=== PATIENT | male | born 1935 | race Caucasian/White ===

== ENCOUNTER 2021-07-19 23:17 | Inpatient (IN) | payer BC, MEDICARE ==
[~2021-07-19] VITALS: Ht 182.9 cm; Wt 78.0 kg
[2021-07-19] MEDS ORDERED: IV NORMAL SALINE 1000 ML BAG IV ONE (23:30)
[2021-07-19] MEDS ORDERED: LIDOCAINE 2% (UROJET) 10 ML JELLY MM ONE (23:30)
[2021-07-19 23:50] LABS: HEMATOCRIT 24.1 % (36.7-47.1); MEAN CORPUSCULAR HEMOGLOBIN 35.1 uug (23.8-33.4); MEAN CORPUSCULAR VOLUME 100.5 fL (73.0-96.2); PLATELET COUNT (AUTO) 105 K/uL (152-348)
[2021-07-19 23:56] LABS: CARBON DIOXIDE 22 mmol/L (21-32); CHLORIDE 100 mmol/L (98-107); CREATININE 2.2 mg/dL (0.6-1.3); GLUCOSE 120 mg/dL (74-106); POTASSIUM 2.9 mmol/L (3.5-5.1); UREA NITROGEN, BLOOD 29 mg/dL (7-18)
[2021-07-20] VITALS (11 sets, daily range): BP systolic 127–148; BP diastolic 47–70
--- NOTE | 2021-07-20 00:05 | NUR ---
Inserted mckeon catheter 19g 1 inch in the r upper chest wall of portacath. ok'd by
[2021-07-20 00:09] LABS: ALANINE AMINOTRANSFERASE 133 U/L (16-63); ALKALINE PHOSPHATASE 117 U/L (50-136); ASPARTATE AMINOTRANSFERASE 152 U/L (15-37); BILIRUBIN,DIRECT 0.3 mg/dL (0.0-0.2); BILIRUBIN,TOTAL 0.8 mg/dL (0.2-1.0)
[2021-07-20] MEDS ORDERED: ZOLP10TA2 PO (00:33)
[2021-07-20] MEDS ORDERED: ALBUTEROL SULFATE 2.5 MG/3 ML NEBU NEB ONE (01:15)
[2021-07-20] MEDS ORDERED: ALBUTEROL SULFATE 2.5 MG/3 ML NEBU ONE (01:24)
--- NOTE | 2021-07-20 01:25 | NUR ---
PAGE FILI NAVA COORDINATOR OF PLACEMENT, WAITING FOR DR ALLEN TO CALL BACK.
[2021-07-20] MEDS ORDERED: POTASSIUM CHLORIDE 20 MEQ TAB.PRT.SR PO ONE (01:45)
[2021-07-20 01:50] LABS: *OCCULT BLOOD STOOL NEGATIVE (NEGATIVE)
[2021-07-20] MEDS ORDERED: POTASSIUM CHLORIDE 20 MEQ TAB.PRT.SR ONE (01:53)
--- NOTE | 2021-07-20 01:56 | NUR ---
DR SHAFFER SPEAKING WITH DR ALLEN FOR ACCEPTANCE TO IN PATIENT.
[2021-07-20] MEDS ORDERED: ENOXAPARIN SODIUM 80 MG/0.8 ML DISP.SYRIN SQ ONE ×2 (02:00→02:20)
[2021-07-20] MEDS ORDERED: DICYCLOMINE HCL LIQ 10 MG/5 ML UDC ONE (02:26)
[2021-07-20] MEDS ORDERED: DIPHENOXYLATE HCL/ATROP SULF TABLET ONE (02:26)
[2021-07-20] MEDS ORDERED: MAGNESIUM HYDROXIDE 30 ML LIQUID UDC PO PRN (02:45)
[2021-07-20] MEDS ORDERED: IV NS 1000 ML 1,000 ML IV ONE (02:45)
[2021-07-20] MEDS ORDERED: ONDANSETRON 4 MG/2 ML VIAL IV PRN (02:45)
[2021-07-20] MEDS ORDERED: Z GUARD REMEDY PASTE 57 GM TUBE TOP PRN (02:45)
[2021-07-20 03:58] LABS: *BILIRUBIN,URIN NEGATIVE (NEGATIVE); *BLOOD, URINE 2+ (NEGATIVE); *CLARITY,URINE CLEAR (CLEAR); *COLOR,URINE YELLOW (YELLOW); *KETONES,URINE 1+ (NEGATIVE); *UROBILINOGEN,URINE 0.2 E.U./dl (NORMAL); LEUKOCYTE ESTERASE ,URINE NEGATIVE (NEGATIVE); NITRITE, URINE NEGATIVE (NEGATIVE); PH,URINE 5.5 (5.0-8.0); UGLUCOSE NEGATIVE (NEGATIVE)
[2021-07-20 04:06] LABS: BACTERIA,URINE NONE SEEN /HPF (NONE SEEN); SQUAMOUS EPITHELIAL CELL,UR FEW /HPF (NONE SEEN); WBC,URINE 0-3 /HPF (0-3)
--- NOTE | 2021-07-20 04:40 | NUR ---
Admitted a 85 years old male with Dx of MARY CARMEN and Right Pubic Fracture. Patient AAOx4. In no apparent distress. Denies any SOB. Only complains of pain on pelvic area during movement. No pain with immobility. Port a cath on right upper chest area in place with dressing intact. Sinus rhythm with PVC on tele with HR of 100/min. Patient with multiple dry wound on moreno. elbow, moreno knee, moreno foot. Hx of fall x2, 2 days ago. Wound care consult in place. Routine admission care. Plan of care initiated. Safety measure initiated and call mora within reached.
[2021-07-20] MEDS: ACETAMINOPHEN 325 MG TABLET PO PRN (05:35)
[2021-07-20 07:15] LABS: CARBON DIOXIDE 21 mmol/L (21-32); CHLORIDE 104 mmol/L (98-107); CHOLESTEROL 100 mg/dL (<200); GLUCOSE 122 mg/dL (74-106); HDL CHOLESTEROL 17 mg/dL (40-60); MAGNESIUM 1.8 mg/dL (1.8-2.4); PHOSPHOROUS 2.6 mg/dL (2.5-4.9); POTASSIUM 3.6 mmol/L (3.5-5.1); TRIGLYCERIDES 178 MG/DL (30-150); UREA NITROGEN, BLOOD 29 mg/dL (7-18)
[2021-07-20 07:16] LABS: MEAN CORPUSCULAR HEMOGLOBIN 34.8 uug (23.8-33.4); MEAN CORPUSCULAR VOLUME 100.2 fL (73.0-96.2); PLATELET COUNT (AUTO) 88 K/uL (152-348)
--- NOTE | 2021-07-20 08:06 | NUR ---
AYAH FROM THE LAB, REPORTED CRITICAL RESULT FOR HGB 7.0, HCT 20.0. DR COLLINS MADE AWARE. WILL CONTINUE TO MONITOR.
[2021-07-20] MEDS: PIPERACILLIN SODIUM/TAZOBACTAM 3.375 G in IV DEXTROSE 5% 50 ML IV SCH ×3 (08:42→20:18)
[2021-07-20] MEDS ORDERED: VANCOMYCIN IV 1,250 MG in IV DEXTROSE 5% 250 ML IV ONE (10:00)
[2021-07-20] MEDS: POTASSIUM CHLORIDE 20 MEQ in IV NS 1000 ML 1,000 ML IV PRN (10:07)
--- NOTE | 2021-07-20 10:18 | NUR ---
CONSENT OBTAINED FOR BLOOD TRANSFUSION ORDERED. WILL CONTINUE TO MONITOR.
--- NOTE | 2021-07-20 10:20 | NUR ---
MD ORDER DC TELEMETRY. NO DISTRESS IDENTIFIED. WILL CONTINUE TO MONITOR.
[2021-07-20] MEDS ORDERED: PIPERACILLIN/TAZO 2.25 G in IV DEXTROSE 5% 50 ML IV SCH (12:00)
[2021-07-20] MEDS ORDERED: FEBU40TA PO (15:16)
[2021-07-20] MEDS ORDERED: METO25TA3 PO (15:16)
[2021-07-20] MEDS ORDERED: AMLO-212 PO (15:16)
[2021-07-20] MEDS ORDERED: ROSU5TAB PO (15:16)
--- NOTE | 2021-07-20 18:49 | NUR ---
S/P BLOOD TRANSFUSION, NO ADVERSE REACTION NOTED. NO SIGNIFICANT CHANGES OBSERVED. VS VNL. DENIES DISCOMFORT. FREQUENT CHECKS DONE. ALL DUE MEDS GIVEN. ALL NEEDS ATTENDED. SAFETY MEASURES MAINTAINED. KEPT CALL LIGHT WITHIN REACH. WILL ENDORSE FOR CONTINUITY OF CARE.
[2021-07-20] MEDS: ZOLPIDEM 5 MG TABLET PO PRN (20:28)
[2021-07-21] MEDS: PIPERACILLIN SODIUM/TAZOBACTAM 3.375 G in IV DEXTROSE 5% 50 ML IV SCH ×4 (02:28→21:22)
[2021-07-21 04:00] VITALS: BP 140/66
[2021-07-21 09:40] LABS: ALANINE AMINOTRANSFERASE 85 U/L (16-63); ALKALINE PHOSPHATASE 106 U/L (50-136); ASPARTATE AMINOTRANSFERASE 71 U/L (15-37); BILIRUBIN,TOTAL 0.7 mg/dL (0.2-1.0); CARBON DIOXIDE 21 mmol/L (21-32); CHLORIDE 105 mmol/L (98-107); CREATININE 1.8 mg/dL (0.6-1.3); GLUCOSE 107 mg/dL (74-106); MAGNESIUM 1.6 mg/dL (1.8-2.4); PHOSPHOROUS 2.2 mg/dL (2.5-4.9); POTASSIUM 3.1 mmol/L (3.5-5.1); TOTAL PROTEIN, SERUM 5.1 g/dL (6.4-8.2); UREA NITROGEN, BLOOD 20 mg/dL (7-18)
[2021-07-21] MEDS ORDERED: POTASSIUM PHOSPHATE MM 15 MMOL in IV NORMAL SALINE 250 ML IV ONE (11:15)
[2021-07-21] MEDS: VANCOMYCIN IV 1,000 MG in IV DEXTROSE 5% 250 ML IV SCH (11:35)
--- NOTE | 2021-07-21 11:39 | NUR ---
WOUND CARE CONSULT: PT PRESENTS WITH DRY ABRASIONS TO KNEES, FEET AND LEFT ELBOW, ABRASION TO RT ELBOW AND MOISTURE ASSOCIATED OPEN SKIN TO GLUTEAL CREASE, PRESENT ON ADMISSION. RECOMMENDATIONS MADE FOR SKIN PROTECTION AND WOUND CARE. DISCUSSED WITH NURSING STAFF. IN AGREEMENT WITH PLAN OF CARE. Addendum: 07/21/21 at 1143 by SHERRI PATRICIO RN Amended: Links added.
[2021-07-21 12:10] VITALS: BP 136/58
[2021-07-21] MEDS: MAGNESIUM OXIDE 400 MG TABLET PO ONE ×2 (14:24→14:37)
[2021-07-21] MEDS: POTASSIUM PHOSPHATE MM 7.5 MMOL in IV NORMAL SALINE 97.5 ML IV SCH ×2 (14:38→18:20)
[2021-07-21 16:06] VITALS: BP 130/70
[2021-07-21 20:00] VITALS: BP 115/73
--- NOTE | 2021-07-21 20:00 | NUR ---
AWAKE,ALERT X4. TEMP 101.9, HAIRSPRING STAKER SELWYN NOTIFIED , NO ORDERS WERE MADE. NO COMPLAINTS MADE. IN NO ACUTE DISTRESS.
[2021-07-21] MEDS: ACETAMINOPHEN 325 MG TABLET PO PRN (20:08)
[2021-07-22 04:00] VITALS: BP 137/65
[2021-07-22] MEDS: PIPERACILLIN SODIUM/TAZOBACTAM 3.375 G in IV DEXTROSE 5% 50 ML IV SCH ×3 (04:01→14:28)
[2021-07-22] MEDS: POTASSIUM CHLORIDE 20 MEQ in IV NS 1000 ML 1,000 ML IV PRN ×2 (04:07→20:09)
--- NOTE | 2021-07-22 04:45 | NUR ---
RECEIVED REPORT FROM RN. PATIENT ASLEEP IN BED.
[2021-07-22 06:35] LABS: BAND % (MANUAL) 7 % (0-10); EOSINOPHILS % (MANUAL) 1 % (0-8); LYMPHOCYTES % (MANUAL) 5 % (20-40); MONOCYTES % (MANUAL) 4 % (2-10); NEUTROPHILS % (MANUAL) 83 % (42-75)
[2021-07-22 07:29] LABS: HEMATOCRIT 25.3 % (36.7-47.1); MEAN CORPUSCULAR HEMOGLOBIN 34.5 uug (23.8-33.4); MEAN CORPUSCULAR VOLUME 100.1 fL (73.0-96.2); PLATELET COUNT (AUTO) 74 K/uL (152-348)
[2021-07-22 07:37] LABS: CARBON DIOXIDE 20 mmol/L (21-32); CHLORIDE 106 mmol/L (98-107); CREATININE 1.7 mg/dL (0.6-1.3); GLUCOSE 106 mg/dL (74-106); MAGNESIUM 1.7 mg/dL (1.8-2.4); PHOSPHOROUS 2.4 mg/dL (2.5-4.9); POTASSIUM 3.5 mmol/L (3.5-5.1); UREA NITROGEN, BLOOD 18 mg/dL (7-18)
[2021-07-22] MEDS ORDERED: MAGNESIUM OXIDE 400 MG TABLET PO ONE (09:30)
[2021-07-22] MEDS: VANCOMYCIN IV 1,000 MG in IV DEXTROSE 5% 250 ML IV SCH (10:09)
[2021-07-22 12:00] VITALS: BP 126/60
[2021-07-22] MEDS ORDERED: POTASSIUM PHOSPHATE MM 7.5 MMOL in IV NORMAL SALINE 97.5 ML IV ONE (12:00)
[2021-07-22] MEDS ORDERED: PIPERACILLIN/TAZO 2.25 G in IV DEXTROSE 5% 50 ML IV SCH (15:00)
[2021-07-22 16:00] VITALS: BP 134/65
[2021-07-22 20:00] VITALS: BP 150/64
[2021-07-22] MEDS: ACETAMINOPHEN 325 MG TABLET PO PRN (20:07)
[2021-07-22] MEDS: PIPERACILLIN/TAZO 2.25 G in IV DEXTROSE 5% 50 ML IV SCH (20:13)
--- NOTE | 2021-07-22 20:15 | NUR ---
Patient in resting in bed AALOx4. No s/s of distress noted .On RA . Denies pain at this time.Port a cath on right upper chest area in place with dressing intact.Patent and intact. IV on right wrist IVF infusing well.Administered Iv ATb as ordered .No a/r noted.Patient uses urinal ,voided well with clear yellow urine output.Temp noted 100.3.Tylenol given. Call light with in reach. Will continue to monitor.
[2021-07-22] MEDS: ZOLPIDEM 5 MG TABLET PO PRN (21:02)
--- NOTE | 2021-07-22 21:36 | NUR ---
Patient's temp went down to 98.1 in no apparent distress noted.Ambien given as per patient's request.
[2021-07-23] MEDS: PIPERACILLIN/TAZO 2.25 G in IV DEXTROSE 5% 50 ML IV SCH ×3 (02:15→15:35)
[2021-07-23 04:00] VITALS: BP 151/73
[2021-07-23 06:16] LABS: HEMATOCRIT 25.9 % (36.7-47.1); MEAN CORPUSCULAR VOLUME 99.1 fL (73.0-96.2); PLATELET COUNT (AUTO) 66 K/uL (152-348)
[2021-07-23 06:35] LABS: IRON, SERUM 18 ug/dL (50-175)
[2021-07-23 07:37] LABS: ALANINE AMINOTRANSFERASE 83 U/L (16-63); ALKALINE PHOSPHATASE 104 U/L (50-136); ASPARTATE AMINOTRANSFERASE 72 U/L (15-37); BILIRUBIN,TOTAL 0.6 mg/dL (0.2-1.0); CARBON DIOXIDE 23 mmol/L (21-32); CHLORIDE 106 mmol/L (98-107); CREATININE 1.6 mg/dL (0.6-1.3); FERRITIN 8629 ng/mL (26-388); GLUCOSE 104 mg/dL (74-106); MAGNESIUM 1.4 mg/dL (1.8-2.4); POTASSIUM 3.4 mmol/L (3.5-5.1); UREA NITROGEN, BLOOD 17 mg/dL (7-18)
[2021-07-23 08:00] VITALS: BP 146/70
[2021-07-23] MEDS: METOPROLOL SUCCINATE XL 25 MG TAB.SR.24H PO SCH (09:12)
[2021-07-23] MEDS ORDERED: VANCOMYCIN IV 1,000 MG in IV DEXTROSE 5% 250 ML IV SCH (11:00)
[2021-07-23] MEDS ORDERED: POTASSIUM PHOSPHATE MM 15 MMOL in IV NORMAL SALINE 250 ML IV ONE (11:00)
[2021-07-23] MEDS: POTASSIUM CHLORIDE 20 MEQ in IV NS 1000 ML 1,000 ML IV PRN (11:33)
[2021-07-23] MEDS: MAGNESIUM SULFATE/D5W 100 ML IV SCH ×2 (12:01→13:26)
[2021-07-23 12:54] LABS: *RHEUMATOID FACTOR SCREEN NEGATIVE (NEGATIVE)
[2021-07-23 16:00] VITALS: BP 139/67
[2021-07-23 20:00] VITALS: BP 137/58
[2021-07-23] MEDS ORDERED: MIRALAX 17 GM POWD.PACK PO PRN (20:00)
[2021-07-23] MEDS: DOCUSATE SODIUM 100 MG CAPSULE PO SCH (20:35)
[2021-07-23] MEDS: ZOLPIDEM 5 MG TABLET PO PRN (20:43)
[2021-07-23] MEDS: ACETAMINOPHEN 325 MG TABLET PO PRN (22:56)
[2021-07-24 04:00] VITALS: BP 128/62
--- NOTE | 2021-07-24 06:28 | NUR ---
Patient slept well throughout the night . No acute distress noted.Denies SOB or discomfort.Nas cath in place on right chest wall. Medication were given as ordered. All needs anticipated and met accordingly.
[2021-07-24 06:39] LABS: HEMATOCRIT 27.4 % (36.7-47.1); MEAN CORPUSCULAR HEMOGLOBIN 33.7 uug (23.8-33.4); MEAN CORPUSCULAR VOLUME 99.6 fL (73.0-96.2); PLATELET COUNT (AUTO) 61 K/uL (152-348)
[2021-07-24 07:43] LABS: ALANINE AMINOTRANSFERASE 74 U/L (16-63); ALKALINE PHOSPHATASE 104 U/L (50-136); ASPARTATE AMINOTRANSFERASE 59 U/L (15-37); BILIRUBIN,TOTAL 0.4 mg/dL (0.2-1.0); CARBON DIOXIDE 21 mmol/L (21-32); CHLORIDE 106 mmol/L (98-107); CREATININE 1.6 mg/dL (0.6-1.3); GLUCOSE 99 mg/dL (74-106); LIPASE 106 U/L (73-393); MAGNESIUM 1.9 mg/dL (1.8-2.4); PHOSPHOROUS 2.8 mg/dL (2.5-4.9); POTASSIUM 3.4 mmol/L (3.5-5.1); UREA NITROGEN, BLOOD 17 mg/dL (7-18)
[2021-07-24] MEDS: ACIDOPHILUS/BULGARICUS CHEW TAB PO SCH (09:23)
[2021-07-24] MEDS: METOPROLOL SUCCINATE XL 25 MG TAB.SR.24H PO SCH (09:24)
[2021-07-24] MEDS ORDERED: POTASSIUM CHLORIDE 10 MEQ TAB.PRT.SR PO ONE (10:15)
[2021-07-24 12:00] VITALS: BP 134/51
[2021-07-24] MEDS: ENOXAPARIN SODIUM 40 MG/0.4 ML DISP.SYRIN SQ SCH (13:25)
[2021-07-24 14:34] LABS: EOSINOPHILS % (MANUAL) 3 % (0-8); LYMPHOCYTES % (MANUAL) 32 % (20-40); MONOCYTES % (MANUAL) 8 % (2-10); NEUTROPHILS % (MANUAL) 57 % (42-75)
[2021-07-24 16:00] VITALS: BP 148/60
[2021-07-24] MEDS: ENSURE WITH FIBER 237 ML LIQUID (CHOCOLATE) PO SCH (18:13)
[2021-07-24 20:00] VITALS: BP 139/58
[2021-07-24] MEDS: ACETAMINOPHEN 325 MG TABLET PO PRN (20:04)
[2021-07-24] MEDS: DOCUSATE SODIUM 100 MG CAPSULE PO SCH (20:04)
[2021-07-24] MEDS: ZOLPIDEM 5 MG TABLET PO PRN (22:44)
[2021-07-24] MEDS ORDERED: MEROPENEM 0.5 G in IV NORMAL SALINE 50 ML IV SCH (23:00)
[2021-07-24] MEDS ORDERED: MEROPENEM 500 MG VIAL IV ONE (23:23)
[2021-07-24] MEDS ORDERED: VANCOMYCIN 1000 MG VIAL ONE (23:25)
[2021-07-24] MEDS ORDERED: VANCOMYCIN IV 1,000 MG in IV DEXTROSE 5% 250 ML IV ONE (23:30)
[2021-07-25 04:22] VITALS: BP 121/53
[2021-07-25 07:02] LABS: HEMATOCRIT 24.8 % (36.7-47.1); MEAN CORPUSCULAR HEMOGLOBIN 33.9 uug (23.8-33.4); MEAN CORPUSCULAR VOLUME 98.2 fL (73.0-96.2); PLATELET COUNT (AUTO) 59 K/uL (152-348)
[2021-07-25 07:21] LABS: CARBON DIOXIDE 23 mmol/L (21-32); CHLORIDE 102 mmol/L (98-107); CREATININE 1.6 mg/dL (0.6-1.3); GLUCOSE 102 mg/dL (74-106); MAGNESIUM 1.6 mg/dL (1.8-2.4); PHOSPHOROUS 2.4 mg/dL (2.5-4.9); POTASSIUM 3.2 mmol/L (3.5-5.1); UREA NITROGEN, BLOOD 18 mg/dL (7-18)
[2021-07-25] MEDS ORDERED: MEROPENEM 0.5 G in IV NORMAL SALINE 50 ML IV SCH ×2 (08:00→14:00)
[2021-07-25] MEDS: ACIDOPHILUS/BULGARICUS CHEW TAB PO SCH (09:40)
[2021-07-25] MEDS: METOPROLOL SUCCINATE XL 25 MG TAB.SR.24H PO SCH (09:41)
[2021-07-25] MEDS: ENSURE WITH FIBER 237 ML LIQUID (CHOCOLATE) PO SCH ×3 (09:41→17:03)
[2021-07-25] MEDS: ENOXAPARIN SODIUM 40 MG/0.4 ML DISP.SYRIN SQ SCH (09:42)
[2021-07-25] MEDS ORDERED: NEUTRA PHOS PACKET PO ONE (10:00)
[2021-07-25] MEDS ORDERED: MAGNESIUM OXIDE 400 MG TABLET PO ONE (10:00)
[2021-07-25] MEDS: MEROPENEM 1 G in IV NORMAL SALINE 100 ML IV SCH ×2 (11:08→22:16)
[2021-07-25 11:40] VITALS: BP 120/55
[2021-07-25 11:45] LABS: *BILIRUBIN,URIN NEGATIVE (NEGATIVE); *BLOOD, URINE 1+ (NEGATIVE); *COLOR,URINE YELLOW (YELLOW); *KETONES,URINE NEGATIVE (NEGATIVE); *UROBILINOGEN,URINE 0.2 E.U./dl (NORMAL); LEUKOCYTE ESTERASE ,URINE NEGATIVE (NEGATIVE); NITRITE, URINE NEGATIVE (NEGATIVE); PH,URINE 5.5 (5.0-8.0); UGLUCOSE NEGATIVE (NEGATIVE)
[2021-07-25 15:17] LABS: *CLARITY,URINE SLIGHTLY HAZY (CLEAR); WBC,URINE 0-3 /HPF (0-3)
[2021-07-25 15:18] LABS: BACTERIA,URINE FEW /HPF (NONE SEEN); SQUAMOUS EPITHELIAL CELL,UR NONE SEEN /HPF (NONE SEEN); URINE AMORPHOUS URATE FEW /HPF
[2021-07-25 16:05] VITALS: BP 131/67
[2021-07-25] MEDS ORDERED: VANCOMYCIN IV 1,000 MG in IV DEXTROSE 5% 250 ML IV SCH (17:00)
[2021-07-25] MEDS: ACETAMINOPHEN 325 MG TABLET PO PRN (17:03)
--- NOTE | 2021-07-25 18:00 | NUR ---
PRN Tylenol administered for temperature of 100.3. Reassessed temp of 99.2. Will continue to monitor
[2021-07-25 20:00] VITALS: BP 130/56
[2021-07-25] MEDS: DOCUSATE SODIUM 100 MG CAPSULE PO SCH (20:18)
[2021-07-25] MEDS: ZOLPIDEM 5 MG TABLET PO PRN (23:09)
[2021-07-26 04:00] VITALS: BP 142/57
[2021-07-26 06:56] LABS: HEMATOCRIT 24.5 % (36.7-47.1); MEAN CORPUSCULAR HEMOGLOBIN 33.5 uug (23.8-33.4); MEAN CORPUSCULAR VOLUME 98.2 fL (73.0-96.2); PLATELET COUNT (AUTO) 53 K/uL (152-348)
[2021-07-26 07:11] LABS: ALANINE AMINOTRANSFERASE 58 U/L (16-63); ALKALINE PHOSPHATASE 93 U/L (50-136); ASPARTATE AMINOTRANSFERASE 44 U/L (15-37); BILIRUBIN,DIRECT 0.2 mg/dL (0.0-0.2); BILIRUBIN,TOTAL 0.5 mg/dL (0.2-1.0); CARBON DIOXIDE 25 mmol/L (21-32); CHLORIDE 101 mmol/L (98-107); CREATININE 1.8 mg/dL (0.6-1.3); GLUCOSE 104 mg/dL (74-106); MAGNESIUM 1.4 mg/dL (1.8-2.4); PHOSPHOROUS 2.5 mg/dL (2.5-4.9); POTASSIUM 3.4 mmol/L (3.5-5.1); TOTAL PROTEIN, SERUM 4.8 g/dL (6.4-8.2); UREA NITROGEN, BLOOD 18 mg/dL (7-18)
[2021-07-26] MEDS: ACIDOPHILUS/BULGARICUS CHEW TAB PO SCH (08:38)
[2021-07-26] MEDS: METOPROLOL SUCCINATE XL 25 MG TAB.SR.24H PO SCH (08:39)
[2021-07-26] MEDS: ENSURE WITH FIBER 237 ML LIQUID (CHOCOLATE) PO SCH ×3 (08:46→17:11)
[2021-07-26] MEDS ORDERED: POTASSIUM CHLORIDE 20 MEQ POWDER PACKET GT ONE (09:00)
[2021-07-26] MEDS ORDERED: POTASSIUM CHLORIDE 20 MEQ TAB.PRT.SR PO ONE (09:15)
[2021-07-26] MEDS: ENOXAPARIN SODIUM 40 MG/0.4 ML DISP.SYRIN SQ SCH (09:38)
[2021-07-26] MEDS: MAGNESIUM SULFATE/D5W 100 ML IV SCH ×3 (09:38→14:05)
--- NOTE | 2021-07-26 10:00 | NUR ---
PATIENT WAS NPO UPON START OF SHIFT BECAUSE HE HAS ORDER FOR CT ABDOMEN AND PELVIS.HE IS ALERT VERY HARD OF HEARING BUT ABLE TO MAKE NEEDS KNOWN.RIGHT CHEST HEMANT CATH IS INTACT AT THIS TIME REMAIN ON ATB ORDERED WITH NO ADVERSE OR ALLERGIC REACTIONS CALL LIGHTS AND PERSONAL BELONGINGS ARE WITHIN EASY REACH WILL CONTINUE TO OBSERVE
[2021-07-26] MEDS: MEROPENEM 1 G in IV NORMAL SALINE 100 ML IV SCH ×2 (11:32→23:41)
[2021-07-26 12:00] VITALS: BP 117/50
--- NOTE | 2021-07-26 15:03 | NUR ---
Clinical Social Work Note SW consult was requested by dietitian to provide food resources. Patient is a 85 year old White male who is alert and oriented x4. Patient presents with a withdrawn mood and flat affect. Patient has been admitted due to generalized weakness. Patient stated that he needs assistance with food resources and cancer support resources. MICHEAL provided patient with food resources such as Meals on Wheels [phone], and [employer] [phone]. For cancer resources, We [facility] [address], [place] [address] and Cancer Support [address] [address] .
[2021-07-26 15:20] LABS: LYMPHOCYTES % (MANUAL) 40 % (20-40); MONOCYTES % (MANUAL) 5 % (2-10); NEUTROPHILS % (MANUAL) 50 % (42-75); REACTIVE LYMPHOCYTES 5 % (0-0)
[2021-07-26] MEDS: VANCOMYCIN IV 1,250 MG in IV DEXTROSE 5% 250 ML IV SCH (15:41)
[2021-07-26 16:15] VITALS: BP 141/60
[2021-07-26] MEDS: ACETAMINOPHEN 325 MG TABLET PO PRN (16:29)
--- NOTE | 2021-07-26 16:30 | NUR ---
TEMP AT THIS TIME IS 101.5 TYLENOL GIVEN PATIENT DENIES DISCOMFORTS COOLING MEASURES STARTED BALDOMERO PRIETO.
--- NOTE | 2021-07-26 17:00 | NUR ---
PATIENT SEEN AND EXAMINED BY QAMAR AWARE THAT PATIENT HAS A FEVER WITH ORDERS AND NOTED.
--- NOTE | 2021-07-26 18:30 | NUR ---
TEMP RECHECKED AND ITS 97.8 AT THIS TIME ASSYMPTOMATIC NOT IN DISTRESS.
--- NOTE | 2021-07-26 19:32 | NUR ---
Received patient resting in bed, awake, alert, on room air saturating at 97%, portacath intact and patent, bed alarm on, call lights within reach, safety measures initiated. will continue to monitor
[2021-07-26 20:00] VITALS: BP 129/57
[2021-07-26] MEDS: DOCUSATE SODIUM 100 MG CAPSULE PO SCH (21:26)
[2021-07-26] MEDS: ZOLPIDEM 5 MG TABLET PO PRN (23:37)
[2021-07-27 04:00] VITALS: BP 131/59
--- NOTE | 2021-07-27 04:40 | NUR ---
patient's o2 desaturated to 77-80% on RA. Put 10 L O2 mask on, pt o2 saturation is now 96-97. will continue to monitor
[2021-07-27] MEDS: ACETAMINOPHEN 325 MG TABLET PO PRN (05:26)
--- NOTE | 2021-07-27 06:40 | NUR ---
Patient AO x 4, on 10L mask, o2 saturating at 97%, tylenol given for fever of 100.5, patient compliant with care and medication, bed alarm on, call lights within reach, will endorse to oncoming shift.
--- NOTE | 2021-07-27 08:00 | NUR ---
PATIENT IS IN BED AWAKE ALERT AND ORIENTED BUT VERY HARD OF HEARING HE HAS O2 BY MASK DOWN GRADED TO NASAL CANULA TO ALLOW HIM TO EAT AT 5L/M SAT IS AT 90-91 PERCENT WILL OBSERVE SATURATIONS.HEMANT CATH REMAINS INTACT WITH NO S/S OF INFILTRATIONS AT THIS TIME.
[2021-07-27] MEDS: CALCIUM CARB/VITAMIN D 500MG-200UNITS TABLET PO SCH (08:14)
[2021-07-27] MEDS: ENOXAPARIN SODIUM 40 MG/0.4 ML DISP.SYRIN SQ SCH (08:14)
[2021-07-27] MEDS: ACIDOPHILUS/BULGARICUS CHEW TAB PO SCH (08:14)
[2021-07-27] MEDS: METOPROLOL SUCCINATE XL 25 MG TAB.SR.24H PO SCH (08:15)
[2021-07-27] MEDS: ENSURE WITH FIBER 237 ML LIQUID (CHOCOLATE) PO SCH ×3 (08:16→17:34)
[2021-07-27 08:28] LABS: HEMATOCRIT 24.4 % (36.7-47.1); MEAN CORPUSCULAR HEMOGLOBIN 33.7 uug (23.8-33.4); MEAN CORPUSCULAR VOLUME 97.7 fL (73.0-96.2); PLATELET COUNT (AUTO) 56 K/uL (152-348)
[2021-07-27 08:31] LABS: CARBON DIOXIDE 26 mmol/L (21-32); CHLORIDE 100 mmol/L (98-107); GLUCOSE 122 mg/dL (74-106); UREA NITROGEN, BLOOD 23 mg/dL (7-18)
--- NOTE | 2021-07-27 09:30 | NUR ---
WAS RELAYED TO ME THAT DAMIEN HAS 2 BOTTLES OF HIS HOME MEDICATIONS WHICH INCLUDED AMBIEN 10MG AND FEBUXOSTAT RETRIEVED THESE MEDICATIONS AND PATIENT INSTRUCTED THAT PER HOSPITAL POLICY I WILL SEND THESE MEDICATIONS TO THE PHARMACY FOR SAFE KEEPING.PATIENT GOT VERY UPSET AND STATED THAT IT WAS INVASION OF HIS PRIVACY FOR HIS MEDICATIONS TO BE REMOVED.BALDOMERO GIL AERIAL PHOTOGRAPH INTERPRETER NOTIFIED.
[2021-07-27] MEDS: MEROPENEM 1 G in IV NORMAL SALINE 100 ML IV SCH ×2 (10:32→22:18)
[2021-07-27 12:00] VITALS: BP 121/55
--- NOTE | 2021-07-27 14:17 | NUR ---
BALDOMERO SEEN PATIENT AND PATIENT SPOKE WITH PATIENT RE SAID MEDS THAT WERE ROVED FROM HIS ROOM AND SENT TO THE PHARMACY AND PATIENT TOLD HER THAT MAYBE HE WILL SEND HIS FRIEND TO PICK THEM UP AND KEEP THEM FOR HIM.NEW ORDERS NOTED FOR BLOOD CULTURES LAB AWARE .
[2021-07-27] MEDS: VANCOMYCIN IV 1,250 MG in IV DEXTROSE 5% 250 ML IV SCH (15:41)
[2021-07-27 16:00] VITALS: BP 139/58
--- NOTE | 2021-07-27 17:31 | NUR ---
DR CARTWRIGHT ONCOLOGIST HERE SEEN PATIENT WITH NEW ORDERS AND NOTED.
--- NOTE | 2021-07-27 19:56 | NUR ---
Received patient lying in bed. AAOx4. TEJON. In no acute distress. Denies any pain or SOB. On O2 at 5LPM via NC in place. O2 sat at 94%. Port a cath on right upper chest area intact and patent. TKO. Needs assessed and attended to. Safety measure initiated and call mora within reached.
[2021-07-27 20:00] VITALS: BP 146/65
[2021-07-27] MEDS: ZOLPIDEM 5 MG TABLET PO PRN (20:28)
[2021-07-27] MEDS: DOCUSATE SODIUM 100 MG CAPSULE PO SCH (20:28)
[2021-07-28 04:00] VITALS: BP 140/67
[2021-07-28] MEDS: ACETAMINOPHEN 325 MG TABLET PO PRN ×2 (06:17→18:20)
--- NOTE | 2021-07-28 06:50 | NUR ---
Pt slept well last night. AAOx4. [place]. In no apparent distress. Denies any pain or SOB. On O2 at 5LPM via NC in place. O2 sat at 91%. Occasional non-productive cough noted. Port a cath on right upper chest area intact and patent. TKO. Needs attended to and met. Safety measure maintineed and call mora within reached.
[2021-07-28] MEDS ORDERED: IV NS 1000 ML 1,000 ML IV ONE (07:00)
[2021-07-28 07:11] LABS: HEMATOCRIT 21.5 % (36.7-47.1); MEAN CORPUSCULAR HEMOGLOBIN 33.6 uug (23.8-33.4); MEAN CORPUSCULAR VOLUME 96.9 fL (73.0-96.2); PLATELET COUNT (AUTO) 50 K/uL (152-348)
[2021-07-28 07:16] LABS: CARBON DIOXIDE 26 mmol/L (21-32); CHLORIDE 103 mmol/L (98-107); CREATININE 1.9 mg/dL (0.6-1.3); GLUCOSE 115 mg/dL (74-106); POTASSIUM 3.8 mmol/L (3.5-5.1); UREA NITROGEN, BLOOD 24 mg/dL (7-18)
[2021-07-28 08:00] VITALS: BP 97/46
--- NOTE | 2021-07-28 08:00 | NUR ---
Pt is resting in bed, wakes up easily. No distress noted. Pt is A/O x 4. Pt is on 5L of Oxygen, sat at 95%. Akhil Cath on [facility] area, TKO running and functional. Call light within reach. Pt is compliant with medications.
[2021-07-28] MEDS: METOPROLOL SUCCINATE XL 25 MG TAB.SR.24H PO SCH (09:00)
[2021-07-28] MEDS: CALCIUM CARB/VITAMIN D 500MG-200UNITS TABLET PO SCH (10:52)
[2021-07-28] MEDS: ENOXAPARIN SODIUM 40 MG/0.4 ML DISP.SYRIN SQ SCH (10:53)
[2021-07-28] MEDS: ACIDOPHILUS/BULGARICUS CHEW TAB PO SCH (10:53)
[2021-07-28 12:00] VITALS: BP 94/58
[2021-07-28] MEDS: MEROPENEM 1 G in IV NORMAL SALINE 100 ML IV SCH ×2 (12:51→23:08)
[2021-07-28] MEDS: ENSURE WITH FIBER 237 ML LIQUID (CHOCOLATE) PO SCH ×3 (12:52→18:21)
[2021-07-28 15:09] LABS: HEPATITIS B SURFACE AG Negative
[2021-07-28 15:11] LABS: *IMMUNOFIXATION RESULT Abnormal; *IMMUNOGLOBULIN G, SERUM 674
[2021-07-28 15:12] LABS: IMMUNOGLOBULIN A, SERUM 24 Low; IMMUNOGLOBULIN M, SERUM 23
[2021-07-28 15:13] LABS: ALPHA-1-GLOBULIN 0.3; ALPHA-2-GLOBULIN 0.6
[2021-07-28 15:14] LABS: BETA GLOBULIN 0.7; GAMMA GLOBULIN 0.6; GLOBULIN, TOTAL 2.2
[2021-07-28 15:16] LABS: *SMITH ANTIBODIES <0.2
[2021-07-28 15:17] LABS: *ANTI-SCLERODERMA-70 AB <0.2; *SJOGREN'S ANTI-SS-A <0.2; *SJOGREN'S ANTI-SS-B <0.2; ANTI-DNA(DS) AB, QN <1
[2021-07-28 16:00] VITALS: BP 134/77
[2021-07-28] MEDS: VANCOMYCIN IV 1,250 MG in IV DEXTROSE 5% 250 ML IV SCH (17:49)
--- NOTE | 2021-07-28 18:55 | NUR ---
Pt is resting in bed. Wound care on coxycc area and left elbow was provided. Sites are healing, no signs of infection. Pt was given Tylenol due to c/o headache.
--- NOTE | 2021-07-28 19:30 | NUR ---
Received patient lying in bed. AAOx4. ANIAK. In no apparent distress. Calm and pleasant. Denies any pain or SOB. On O2 at 5LPM via NC in place. O2 sat at 94%. Port a cath on right upper chest area intact and patent. TKO. Needs assessed and attended to. Safety measure initiated and call mora within reached.
[2021-07-28] MEDS: ZOLPIDEM 5 MG TABLET PO PRN (20:17)
[2021-07-28] MEDS: DOCUSATE SODIUM 100 MG CAPSULE PO SCH (20:17)
[2021-07-28 20:51] VITALS: BP 136/78
[2021-07-29 04:00] VITALS: BP_SYST 134; BP_SYST 157; BP_DIAS 67; BP_DIAS 86
--- NOTE | 2021-07-29 06:19 | NUR ---
Patient slept well last night. In no acute distress. On O2 at 2LPM via NC. O2 sat at 94%. No adverse effect noted from IV antibiotic. Port a cath on right upper chest area intact and patent. Needs attended to and met. Safety measure maintained and call mora within reached.
[2021-07-29] MEDS: ENSURE WITH FIBER 237 ML LIQUID (CHOCOLATE) PO SCH ×3 (08:00→18:00)
--- NOTE | 2021-07-29 08:00 | NUR ---
Pt is awake, calm, breathing is non-labored. O2 sat is at 5lpm. Akhil-cath is intact, running fluids TKO. Pt is compliant with medications. NO fever.
[2021-07-29 08:25] LABS: CARBON DIOXIDE 28 mmol/L (21-32); CHLORIDE 101 mmol/L (98-107); CREATININE 1.7 mg/dL (0.6-1.3); GLUCOSE 115 mg/dL (74-106); POTASSIUM 3.6 mmol/L (3.5-5.1); UREA NITROGEN, BLOOD 26 mg/dL (7-18)
[2021-07-29 11:01] LABS: HEMATOCRIT 23.3 % (36.7-47.1); MEAN CORPUSCULAR HEMOGLOBIN 33.1 uug (23.8-33.4); MEAN CORPUSCULAR VOLUME 97.9 fL (73.0-96.2); PLATELET COUNT (AUTO) 55 K/uL (152-348)
[2021-07-29] MEDS: ACIDOPHILUS/BULGARICUS CHEW TAB PO SCH (11:15)
[2021-07-29] MEDS: CALCIUM CARB/VITAMIN D 500MG-200UNITS TABLET PO SCH (11:15)
[2021-07-29] MEDS: ENOXAPARIN SODIUM 40 MG/0.4 ML DISP.SYRIN SQ SCH (11:17)
[2021-07-29] MEDS: METOPROLOL SUCCINATE XL 25 MG TAB.SR.24H PO SCH (11:17)
[2021-07-29] MEDS: MEROPENEM 1 G in IV NORMAL SALINE 100 ML IV SCH ×2 (11:19→22:41)
[2021-07-29 11:23] VITALS: BP 125/59
[2021-07-29 13:31] LABS: BAND % (MANUAL) 3 % (0-10); LYMPHOCYTES % (MANUAL) 17 % (20-40); MONOCYTES % (MANUAL) 6 % (2-10); NEUTROPHILS % (MANUAL) 74 % (42-75)
[2021-07-29] MEDS: MAGNESIUM HYDROXIDE 30 ML LIQUID UDC PO ONE ×2 (15:00→16:18)
[2021-07-29 15:01] VITALS: BP 123/66
[2021-07-29] MEDS: VANCOMYCIN IV 1,250 MG in IV DEXTROSE 5% 250 ML IV SCH (16:17)
--- NOTE | 2021-07-29 19:50 | NUR ---
AO x 4, resting in bed, no acute distress, portacath intact, call lights within reach, safety measures initiated.
[2021-07-29 20:00] VITALS: BP 146/69
[2021-07-29] MEDS: DOCUSATE SODIUM 100 MG CAPSULE PO SCH (22:24)
[2021-07-29] MEDS: ZOLPIDEM 5 MG TABLET PO PRN (22:32)
--- NOTE | 2021-07-29 23:30 | NUR ---
per pt. request, kelsyien given for sleep
--- NOTE | 2021-07-30 06:20 | NUR ---
Patient sleeping well after ambien, on 5L o2 saturating at 95%, vital signs WNL, no acute distress, had one BM during shift, call lights within reach, safety measures maintained, will endorse to am shift.
[2021-07-30 06:41] VITALS: BP 131/63
[2021-07-30 08:05] LABS: HEMATOCRIT 22.1 % (36.7-47.1); MEAN CORPUSCULAR HEMOGLOBIN 33.4 uug (23.8-33.4); MEAN CORPUSCULAR VOLUME 95.9 fL (73.0-96.2); PLATELET COUNT (AUTO) 53 K/uL (152-348)
[2021-07-30 08:37] LABS: CARBON DIOXIDE 29 mmol/L (21-32); CHLORIDE 99 mmol/L (98-107); CREATININE 1.7 mg/dL (0.6-1.3); GLUCOSE 105 mg/dL (74-106); POTASSIUM 3.6 mmol/L (3.5-5.1); UREA NITROGEN, BLOOD 27 mg/dL (7-18)
[2021-07-30] MEDS ORDERED: MAGNESIUM HYDROXIDE 30 ML LIQUID UDC PO ONE (09:00)
[2021-07-30] MEDS: ACIDOPHILUS/BULGARICUS CHEW TAB PO SCH (09:21)
[2021-07-30] MEDS: CALCIUM CARB/VITAMIN D 500MG-200UNITS TABLET PO SCH (09:21)
[2021-07-30] MEDS: METOPROLOL SUCCINATE XL 25 MG TAB.SR.24H PO SCH (09:21)
[2021-07-30] MEDS: ENSURE WITH FIBER 237 ML LIQUID (CHOCOLATE) PO SCH ×3 (09:21→18:27)
[2021-07-30] MEDS: ENOXAPARIN SODIUM 40 MG/0.4 ML DISP.SYRIN SQ SCH (09:23)
--- NOTE | 2021-07-30 11:00 | NUR ---
picked up by director of business services. denies pain or sob. no acute distress.
[2021-07-30 11:15] LABS: BAND % (MANUAL) 2 % (0-10); EOSINOPHILS % (MANUAL) 1 % (0-8); LYMPHOCYTES % (MANUAL) 20 % (20-40); MONOCYTES % (MANUAL) 1 % (2-10); NEUTROPHILS % (MANUAL) 76 % (42-75)
[2021-07-30] MEDS: MEROPENEM 1 G in IV NORMAL SALINE 100 ML IV SCH ×3 (11:16→23:17)
[2021-07-30 12:00] VITALS: BP 137/71
[2021-07-30 15:22] VITALS: BP 119/53
--- NOTE | 2021-07-30 18:32 | NUR ---
awake, comfortably watching tv . on 4lpm satting 95-96%. denies sob or pain. on vancomycin and merrem iv no adverse or allergic rxn noted. pt cooperative with care. needs attended. safety measures in place. needs attended to. cont to monitor.
--- NOTE | 2021-07-30 19:30 | NUR ---
Awake and alert and oriented x4. Patient is hard of hearing. Able to make needs know. Denies any pain or SOB at this time. Nas cath to right chest wall is patent and intact. On 4L 02 via MT. Patient voiding well, using urinal, clear yellow urine. Needs assessed and met. Safety measures initiated. Call light within reach.
[2021-07-30 20:56] VITALS: BP 123/62
[2021-07-30] MEDS: VANCOMYCIN IV 1,000 MG in IV DEXTROSE 5% 250 ML IV SCH (21:13)
[2021-07-30] MEDS: DOCUSATE SODIUM 100 MG CAPSULE PO SCH (21:13)
[2021-07-30] MEDS: ACETAMINOPHEN 325 MG TABLET PO PRN (21:14)
[2021-07-30] MEDS: ZOLPIDEM 5 MG TABLET PO PRN (21:14)
[2021-07-31 04:55] VITALS: BP 131/64
--- NOTE | 2021-07-31 05:45 | NUR ---
Patient slept well, alert x4. Able to make needs know. No significant even this shift. Nas cath to right chest wall is patent and intact. On 4L 02 via NC, 02 sats 94%. Patient voiding well, using urinal, clear yellow urine. Needs assessed and met. Safety measures initiated. Call light within reach.
[2021-07-31 06:46] LABS: MEAN CORPUSCULAR HEMOGLOBIN 33.1 uug (23.8-33.4); MEAN CORPUSCULAR VOLUME 96.1 fL (73.0-96.2); PLATELET COUNT (AUTO) 57 K/uL (152-348)
[2021-07-31 07:01] LABS: CARBON DIOXIDE 32 mmol/L (21-32); CHLORIDE 99 mmol/L (98-107); CREATININE 1.7 mg/dL (0.6-1.3); GLUCOSE 108 mg/dL (74-106); POTASSIUM 3.5 mmol/L (3.5-5.1); UREA NITROGEN, BLOOD 29 mg/dL (7-18)
--- NOTE | 2021-07-31 07:30 | NUR ---
received awke watching tv. no resp distress. on 4 lpm nc satting 94-95%. denies pain. able to make needs known. portacath right upper chest intact and patent. safety measures in place. kept comfortable.
[2021-07-31] MEDS: ACIDOPHILUS/BULGARICUS CHEW TAB PO SCH (08:20)
[2021-07-31] MEDS: METOPROLOL SUCCINATE XL 25 MG TAB.SR.24H PO SCH (08:20)
[2021-07-31] MEDS: ENSURE WITH FIBER 237 ML LIQUID (CHOCOLATE) PO SCH ×3 (08:20→15:46)
[2021-07-31] MEDS: CALCIUM CARB/VITAMIN D 500MG-200UNITS TABLET PO SCH (08:20)
[2021-07-31] MEDS: MEROPENEM 1 G in IV NORMAL SALINE 100 ML IV SCH ×2 (11:07→22:01)
[2021-07-31 12:00] VITALS: BP 127/64
--- NOTE | 2021-07-31 14:00 | NUR ---
received call from [facility] stated pt needs repeat covid rapid test for snf placement. md made aware new order noted. pt made aware.
[2021-07-31 16:00] VITALS: BP 121/59
--- NOTE | 2021-07-31 18:50 | NUR ---
in bed watching tv. no acute distress. remains on 4 lpm nc satting 94-95%. denies pain. safety measures kept. cont to monitor.
--- NOTE | 2021-07-31 19:30 | NUR ---
Received patient in bed. AAO x4. Able to make needs know. Denies any pain or SOB at this time. Nas cath to right chest wall is patent and intact. On 4L 02 via NC, 02 sats 93%. Patient voiding well, using urinal, clear yellow urine. Needs assessed and met. Safety measures initiated. Call light within reach.
[2021-07-31 20:15] VITALS: BP 128/60
[2021-07-31] MEDS: VANCOMYCIN IV 1,000 MG in IV DEXTROSE 5% 250 ML IV SCH (20:28)
[2021-07-31] MEDS: ZOLPIDEM 5 MG TABLET PO PRN (20:29)
[2021-07-31] MEDS: DOCUSATE SODIUM 100 MG CAPSULE PO SCH (20:29)
[2021-08-01 04:18] VITALS: BP 134/61
--- NOTE | 2021-08-01 06:19 | NUR ---
AAOx4, slept well during this shift. Able to make needs know. No significant events. Nas cath to right chest wall is patent and intact. On 4L 02 via NC, 02 sats 96%. Patient voiding well, using urinal, clear yellow urine. Needs assessed and met. Safety measures initiated. Call light within reach.
[2021-08-01 06:34] LABS: HEMATOCRIT 21.5 % (36.7-47.1); MEAN CORPUSCULAR HEMOGLOBIN 32.7 uug (23.8-33.4); MEAN CORPUSCULAR VOLUME 95.3 fL (73.0-96.2)
[2021-08-01 06:40] LABS: PLATELET COUNT (AUTO) 49 K/uL (152-348)
[2021-08-01 06:54] LABS: CARBON DIOXIDE 31 mmol/L (21-32); CHLORIDE 99 mmol/L (98-107); CREATININE 1.8 mg/dL (0.6-1.3); GLUCOSE 104 mg/dL (74-106); POTASSIUM 3.4 mmol/L (3.5-5.1); UREA NITROGEN, BLOOD 28 mg/dL (7-18)
--- NOTE | 2021-08-01 07:00 | NUR ---
Critical labs HGB 7.4 and platelet count 49 received from barbara at lab. Made CAITLYN Abrams aware- endorsed to next shift.
[2021-08-01] MEDS ORDERED: POTASSIUM CHLORIDE 20 MEQ TAB.PRT.SR PO ONE (09:00)
[2021-08-01] MEDS ORDERED: FEBUXOSTAT 40 MG PO SCH (09:00)
[2021-08-01] MEDS ORDERED: POTASSIUM CHLORIDE 20 MEQ POWDER PACKET GT ONE (09:00)
[2021-08-01] MEDS: METOPROLOL SUCCINATE XL 25 MG TAB.SR.24H PO SCH (09:57)
[2021-08-01] MEDS: ACIDOPHILUS/BULGARICUS CHEW TAB PO SCH (09:57)
[2021-08-01] MEDS: CALCIUM CARB/VITAMIN D 500MG-200UNITS TABLET PO SCH (09:57)
[2021-08-01] MEDS: ENSURE WITH FIBER 237 ML LIQUID (CHOCOLATE) PO SCH (10:01)
[2021-08-01] MEDS: MEROPENEM 1 G in IV NORMAL SALINE 100 ML IV SCH ×2 (11:29→23:09)
[2021-08-01 12:00] VITALS: BP 96/64
--- NOTE | 2021-08-01 13:28 | NUR ---
RAPID COVID 19 SPECIMEN OBTAINED AND SENT TO THE LAB ORDERED.
[2021-08-01 16:00] VITALS: BP 119/55
[2021-08-01 17:15] LABS: *IMMUNOGLOBULIN G, SERUM 573 Low
[2021-08-01 17:16] LABS: IMMUNOGLOBULIN A, SERUM 21 Low; IMMUNOGLOBULIN M, SERUM 18
[2021-08-01 17:16] LABS: NEUTROPHILS % (MANUAL) 46 % (42-75)
[2021-08-01 17:17] LABS: BAND % (MANUAL) 2 % (0-10); LYMPHOCYTES % (MANUAL) 43 % (20-40); MONOCYTES % (MANUAL) 7 % (2-10)
[2021-08-01 17:17] LABS: ALBUMIN 2.1 Low; ALPHA-1-GLOBULIN 0.3; ALPHA-2-GLOBULIN 0.7
[2021-08-01 17:18] LABS: BETA GLOBULIN 0.7; GAMMA GLOBULIN 0.5
[2021-08-01 17:19] LABS: GLOBULIN, TOTAL 2.1 Low; M-SPIKE 0.3 High
--- NOTE | 2021-08-01 18:00 | NUR ---
RAPID COVID IS NEGATIVE PER YUNI PALACIO PATIENT CANNOT B E DISCHARGED BECAUSE IFTIKHARRADU ARZATE IS STILL WAITING FOR AUTHORIZATION FROM THE INSURANCE PATIENTS VERÓNICA IS HERE AND HAS TAKEN PATIENTS OWN MEDICATION FROM THE PHARMACY
--- NOTE | 2021-08-01 19:40 | NUR ---
Received patient lying in bed, Balbir by bedside, pt aware that he will not be d/c today and is awaiting for insurance approval, on 4L NC saturating at 93%, right chest portacath intact, urinal emptied and placed close by, bed alarm on, call lights within reach,m safety measures initiated.
[2021-08-01] MEDS: VANCOMYCIN IV 1,000 MG in IV DEXTROSE 5% 250 ML IV SCH (19:59)
[2021-08-01 20:00] VITALS: BP_SYST 118; BP_SYST 140; BP_DIAS 65; BP_DIAS 68
[2021-08-01] MEDS: DOCUSATE SODIUM 100 MG CAPSULE PO SCH (20:06)
[2021-08-02 04:13] VITALS: BP 133/65
--- NOTE | 2021-08-02 06:33 | NUR ---
slept well throughout the night, AO x 4, on 4L NC saturating at 94%, no febrile, Vancomycin and Merrem antibx given and tolerated well, portacath on right chest intact and patent, no acute distress, call lights within reach, safety measures maintained, needs met, will endorse to am shift.
[2021-08-02 07:09] LABS: CARBON DIOXIDE 31 mmol/L (21-32); CHLORIDE 98 mmol/L (98-107); CREATININE 1.9 mg/dL (0.6-1.3); GLUCOSE 104 mg/dL (74-106); MAGNESIUM 1.9 mg/dL (1.8-2.4); POTASSIUM 3.8 mmol/L (3.5-5.1); UREA NITROGEN, BLOOD 27 mg/dL (7-18)
[2021-08-02 07:12] LABS: HEMATOCRIT 21.3 % (36.7-47.1); MEAN CORPUSCULAR VOLUME 95.1 fL (73.0-96.2); PLATELET COUNT (AUTO) 52 K/uL (152-348)
--- NOTE | 2021-08-02 07:30 | NUR ---
RECEIVED PATIENT IN BED WITH EYES CLOSED EASILY AROUSABLE OPENS EYES AND VERBALLY RESPONDS DENIES PAIN OR DISCOMFORTS AT THIS TIME ON O2 AT 4L/M WITH NO SOB AT THIS TIME HEMANT CATH IS INTACT AND PATENT CALL LIGHTS ARE WITHIN EASY REACH MADE COMFORTABLE AND WILL CONTINUE TO OBSERVE.D/C PLANNING TODAY PENDING INSURANCE APPROAVAL
--- NOTE | 2021-08-02 07:50 | NUR ---
RECEIVED CALL FROM THE LAB HEMOGLOBIN IS 7.4 SAME YESTERDAY NOT IN DISTRESS WILL OBSERVE.
[2021-08-02] MEDS: CALCIUM CARB/VITAMIN D 500MG-200UNITS TABLET PO SCH (09:09)
[2021-08-02] MEDS: ENSURE WITH FIBER 237 ML LIQUID (CHOCOLATE) PO SCH (09:29)
[2021-08-02] MEDS: ACIDOPHILUS/BULGARICUS CHEW TAB PO SCH (09:29)
[2021-08-02] MEDS: METOPROLOL SUCCINATE XL 25 MG TAB.SR.24H PO SCH (09:29)
[2021-08-02] MEDS: MEROPENEM 1 G in IV NORMAL SALINE 100 ML IV SCH (10:31)
[2021-08-02 11:35] VITALS: BP 112/57
[2021-08-02] MEDS: COLCHICINE 0.6 MG TABLET PO ONE ×2 (12:38→12:42)
--- NOTE | 2021-08-02 12:42 | NUR ---
SCANNED MEDICATION COLCHICINE DOCUMENTED GAVE TO THE PATIENT BUT HE REFUSED TO TAKE BECAUSE HE STATED THAT HIS WAS HERE AND GAVE HIM HIS REGULAR GOUT MEDICATIONS FROM HOME SO THE COLCHICINE WAS WASTED.
[2021-08-02] MEDS ORDERED: COLCHICINE 0.6 MG TABLET PO ONE (14:00)
--- NOTE | 2021-08-02 14:33 | NUR ---
PER RONEN RADIOLOGIST DIAGNOSTIC PATIENT IS NOW APPROAVED AND WILL BE DISCHARGED TO [facility] WILL BE PICKED UP AT 1630 BY THE [facility].
--- NOTE | 2021-08-02 15:15 | NUR ---
CALLED HAILEY JEWELL SPOKE WITH [facility] AND REPORT GIVEN TO HER FOR CONTINUING CARE PATIENT TO CONTINUE ON IV ANTIBIOTICS ORDERED TMS INSTRUCTIONS PER MD AND SHE EXPRESSED UNDERSTANDING
[2021-08-02 16:28] VITALS: BP 119/58
--- NOTE | 2021-08-02 17:25 | NUR ---
PATIENT DISCHARGED PICKED UP BY [facility] IN SATISFACTORY CONDITION WITH ALL HIS PERSONAL BELONGINGS AND DISCHARGE INSTRUCTION PACKET AMBULANCE TECH WAS ALSO INSTRUCTED ON CONTINUEING CARE
== END 2021-08-02 17:25 | DRG 840 ==
LOC: ER 23:17 → TELE3 07-20 04:12 → MEDSURG3 07-20 10:40
PROVIDERS: ADMIT Internal Medicine; ATTEND Nurse Practitioner Acute Care
PROC: 30233N1 Transfusion of Nonautologous Red Blood Cells into Peripheral Vein, Percutaneous Approach (ICD-10-PCS; principal; 2021-07-20)
DX: C85.90 Non-Hodgkin lymphoma, unspecified, unspecified site (principal); J18.9 Pneumonia, unspecified organism; N17.0 Acute kidney failure with tubular necrosis; I21.A1 Myocardial infarction type 2; I50.31 Acute diastolic (congestive) heart failure; S32.591A Other specified fracture of right pubis, initial encounter for closed fracture; D61.818 Other pancytopenia; M62.82 Rhabdomyolysis; E44.0 Moderate protein-calorie malnutrition; K86.2 Cyst of pancreas; W01.0XXA Fall on same level from slipping, tripping and stumbling without subsequent striking against object, initial encounter; Y93.89 Activity, other specified; Y92.017 Garden or yard in single-family (private) house as the place of occurrence of the external cause; D64.81 Anemia due to antineoplastic chemotherapy; D47.2 Monoclonal gammopathy; E78.5 Hyperlipidemia, unspecified; E83.51 Hypocalcemia; E87.6 Hypokalemia; F12.90 Cannabis use, unspecified, uncomplicated; I11.0 Hypertensive heart disease with heart failure; M10.9 Gout, unspecified; Z20.822 Contact with and (suspected) exposure to COVID-19; Z87.442 Personal history of urinary calculi; Z85.828 Personal history of other malignant neoplasm of skin; Z96.641 Presence of right artificial hip joint; Z87.81 Personal history of (healed) traumatic fracture; M19.90 Unspecified osteoarthritis, unspecified site
CPT/HCPCS: 36415; 70030-TC; 70450; 71045; 71250; 72170; 73502; 73700; 82747; 82784; 83550; 83605; 83690; 83735; 84100; 84155; 84165; 84443; 85014; 85025; 85730; 86038; 86140; 86301; 86334; 86430; 86706; 86803; 86850; 86900; 86901; 86920; 87040; 87086; 87340; 93005; 93307; 97161; A4663; A6209; G0378; J1650; J2185; J2543; J3370; J3475; J3480; J3490; J7030; J7040; J7050; J7060; P9016; U0003